=== PATIENT | male | born 1940 | race Caucasian/White ===

== ENCOUNTER 2016-07-04 15:16 | Emergency (ER) | payer OTHER ==
[2016-07-04 17:47] LABS: BASO% 0.2 % (0.0-0.8); EOS# 0.09 X1000 (0.0-0.7); EOS% 1.1 % (0.0-10.0); HEMATOCRIT 43.4 % (42.0-52.0); HEMOGLOBIN 14.7 g/dL (14.0-18.0); IMM GRAN# 0.01 X1000 (0.0-0.04); IMM GRAN% 0.1 % (0.0-0.5); LYMPH# 2.11 X1000 (1.2-3.4); LYMPH% 25.9 % (20.5-51.1); MANUAL DIFF NEEDED? YES; MCHC 33.9 g/dL (33-37); MCV 88.6 FL (81-99); MONO# 1.66 X1000 (0.11-0.59); MONO% 20.4 % (1.7-9.3); MPV 9.8 FL (7.4-10.4); NEUT% 52.3 % (42.2-75.2); PLT 186 X1000 (130-400)
[2016-07-04 18:02] LABS: ALBUMIN 4.6 g/dL (3.5-5.0); CALCIUM 9.4 mg/dL (8.8-10.2); POTASSIUM 3.9 mmol/L (3.5-5.1); TOTAL BILIRUBIN 1.3 mg/dL (0.20-1.00); TOTAL PROTEIN 7.3 g/dL (6.3-8.3)
--- NOTE | 2016-07-04 18:10 | PROVIDER DOCUMENTATION ---
HPI-Abdominal Pain/GI Problem - General Chief Complaint: Diarrhea Stated Complaint: DIARRHEA X 3 DAYS Time Seen by Provider: 07/04/16 18:04 Source: patient Allergies/Adverse Reactions: Patient Allergies Allergy/AdvReac Type Severity Reaction Status Date / Time No Known Allergies Allergy Verified 07/04/16 15:48 Home Medications: Home Medication List Medication Instructions Recorded Confirmed Last Taken Type Amlodipine [Norvasc] 5 mg PO DAILY 09/24/14 09/28/14 09/28/14 04:00 History Exenatide Microspheres [Bydureon 2 mg SQ DIRECTED 09/24/14 09/28/14 09/26/14 History Pen] Glimepiride 2 mg PO DAILY 09/24/14 09/28/14 09/28/14 04:00 History Omeprazole 40 mg PO DAILY 09/24/14 09/28/14 09/28/14 04:00 History Hydrocodone/APAP 10 mg/325 mg 1 each PO Q4H PRN PRN #0 tablet 09/28/14 Unknown Rx [[place]-10] - History of Present Illness-ABD Nature of Presenting Problems: 76 yom c/o intermittent diarrhea for past 3 days, with some mild abd cramping. Pt denies any nausea or vomiting, SOB, Chest pain or any other symptoms at this time. Abdominal Pain Onset Location: reports: RLQ, LLQ Pain Radiation: reports: no radiation Quality of Pain: reports: cramping Severity in ED: denies: mild (Pt denies any pain at this time.), moderate, severe Onset/Duration: reports: 3 days ago Timing: reports: intermittent Activities at Onset: reports: none Exposure to sick contacts?: No Modifying Factors: improves with: nothing Associated Symptoms: reports: diarrhea Review of Systems - Adult - REVIEW OF SYSTEMS - ADULT Constitutional: reports: see HPI. denies: no symptoms reported, chills, fever, fatique, night sweats, weight gain, weight loss, other Eyes: reports: no symptoms reported. denies: see HPI, discharge, dry eyes, decreased vision, blurred vision, double vision, eye pain, redness, other Ears, Nose, Mouth & Throat: reports: no symptoms reported. denies: see HPI, ear discharge, ear pain, hearing loss, tinnitus, epistaxis, sinus problem, nose pain, loose teeth, mouth/dental pain, mouth swelling, hoarseness, throat pain, throat swelling, other Cardiovascular: reports: no symptoms reported. denies: see HPI, chest pain, edema, heart murmur, irregular heart rate, orthopnea, palpitations, poor circulation, PND, syncope, other Respiratory: reports: no symptoms reported. denies: see HPI, chronic cough, cough, dyspnea on exertion, excessive sputum production, hemoptysis, pleurisy, shortness of breath, wheezing, other Gastrointestinal: reports: see HPI, abdominal pain, diarrhea, nausea Genitourinary: reports: no symptoms reported. denies: see HPI, dysuria, discharge, frequency, flank pain, frequent UTI's, hematuria, hesitency, incontinence, urinary retention, urgency, other Musculoskeletal: reports: no symptoms reported. denies: see HPI, bone pain, back pain, frequent leg cramps, joint pain, joint swelling, muscle aches, muscle weakness, neck pain, other Integumentary: reports: no symptoms reported. denies: see HPI, hives, hair loss , itching, mole changes, nail changes, rash, skin sores/ulcer, skin thickening, other Neurological: reports: no symptoms reported. denies: see HPI, ataxia, dizziness /vertigo, headache/migraines, loss of balance, numbness, paresthesia, seizure, slurred speech, syncope, tremors, other Psychiatric: reports: no symptoms reported. denies: see HPI, anxiety, anti- depressant use, alcohol/drug dependence, depression, emotional problems, insomnia, panic attacks, suicidal thoughts, other All Other Systems: Reviewed and Negative Past History - Adult - PAST MEDICAL HISTORY-ADULT Review of Records: reports: Old Records Reviewed, Nursing Assessment Review, Medications Reviewed, Social history reviewed & non-contributory. Physical Exam-General - PHYSICAL EXAM-ADULT Initial Vital Signs Reviewed: Yes - CONSTITUTIONAL General Appearance: appears well, alert, no apparent distress. negative: mild distress, moderate distress, severe distress, cachetic, obese, thin, anxious, lethargic, slow to respond, obtunded, combative, other - EYES Eyes: PERRL/EOMI, pink conjunctivae. negative: fundi clear, no AV nicking, anisocoria, conjuctival exudate, EOM palsy, meningismus, pale conjunctivae, photophobia, sclera injected, scleral icterus, subconjunctival hemorrhage, sunken eyes, other - HEAD, EARS, NOSE, MOUTH & THROAT HENMT: normocephalic/atraumatic, moist mucous membranes, normal ENT inspection, TMs normal, pharynx normal. negative: angioedema, dental decay, hearing deficit , pharyngeal erythema, tonsillar exudate, TM abnormal, TM obscurred by cerumen, frontal tenderness, maxillary tenderness, other - NECK Neck: non-tender, full range of motion, supple, normal inspection. negative: Brudzinski's sign, carotid bruit, C-spine tenderness, limited range of motion, lymphadenopathy, meningismus, trachial deviation, tender lateral, tender midline , thyromegaly, other - RESPIRATORY Respiratory: chest non-tender, lungs clear, normal breath sounds, no pleuratic chest pain, no respiratory distress, no accessory muscle use. negative: respiratory distress, decreased breath sounds, accessory muscle use, crackles, rales, rhonchi, stridor, wheezing, dull on percussion, prolonged expiration, pain on inspiration, plerual rub, retractions, splinting, decreased rate, increased rate, crepitus, other - CARDIOVASCULAR Cardiovascular: normal peripheral pulses, regular rate, rhythm, no edema, no gallop, no JVD, no murmur. negative: JVD, bradycardia, tachycardia, diastolic murmur, systolic murmur, gallop/S3, gallop/S4, extra beats, friction rub, irregularly irregular, PMI displaced laterally, other - CHEST (BREASTS) Chest/Breast: deferred - GASTROINTESTINAL (ABDOMEN) Abdominal Exam: normal bowel sounds, non tender, soft, no organomegaly, no pulsatile mass. negative: abdominal bruit, abnormal bowel sounds, distended, guarding, rigid, rebound, tenderness, hernia, mass, hepatomegaly, spleenomegaly , McBurney's point tenderness, Gonsalves's sign, obturator sign, prominent aortic pulsations, psoas, Rovsing's sign, other - GENITOURINARY Male Genitalia: deferred - LYMPHATIC Lymphatic: no adenopathy. negative: axilla node tender, cervical node tenderness, inguinal node tender, enlargement, striations, streaking, other - MUSCULOSKELETAL Back Exam: normal inspection, no CVA tenderness, no vertebral tenderness. negative: CVA tenderness, decreased range of motion, ecchymosis, kyphosis, lordosis, muscle spasm, scoliosis, swelling, vertebral tenderness, other Extremity: normal range of motion, non-tender, normal gait, normal inspection, no pedal edema, no calf tenderness, normal capillary refill. negative: pelvis stable, abnormal NV exam, calf tenderness, deformity, erythema, inflammation, joint effusion, pulse deficit, pedal edema, slow capillary refill, swelling, tenderness, other - SKIN Integumentary: normal color, normal turgor, warm/dry. negative: abrasion(s), blanching, cyanosis, diaphoresis, decubitus, dependent lividity, ecchymosis, embolic lesions, erythema, signs of IVDA, jaundice, laceration(s), mottled, pallor, petechiae, purpura, rash, swelling, tenderness, warm, zoster-like rash, other - NEUROLOGIC Neurologic: grossly normal - PSYCHIATRIC Psych/Mental Status: oriented x 3 Progress - PLAN OF CARE/RESULTS Progress/Plan/Lab Results: Laboratory Tests 07/04/16 07/04/16 17:30 17:30 WBC 8.15 RBC 4.90 Hgb 14.7 Hct 43.4 MCV 88.6 MCH 30.0 MCHC 33.9 RDW Std Deviation 13.7 Plt Count 186 MPV 9.8 Immature Gran % (Auto) 0.1 Neut % (Auto) 52.3 Lymph % (Auto) 25.9 [place] % (Auto) 20.4 H Eos % (Auto) 1.1 Baso % (Auto) 0.2 Immature Gran # (Auto) 0.01 Neut # (Auto) 4.26 Lymph # (Auto) 2.11 [place] # (Auto) 1.66 H Eos # (Auto) 0.09 Baso # (Auto) 0.02 Segmented Neutrophils 46 Lymphocytes 22 Monocytes 22 H Eosinophils 2 Atypical Lymphocytes 8.0 Sodium 138 Potassium 3.9 Chloride 103 Carbon Dioxide 26 Anion Gap 9 BUN 25 H Creatinine 1.4 H Estimated GFR/1.73 m2 49 BUN/Creatinine Ratio 18 Glucose 89 Calculated Osmolality 280 Calcium 9.4 Total Bilirubin 1.30 H AST 21 ALT 17 Alkaline Phosphatase 90 Total Protein 7.3 Albumin 4.6 Globulin 3.0 Albumin/Globulin Ratio 2.0 Amylase 51 Lipase 33 Orders Category Date Time Status FLAT/UPRIGHT ABD/1 VIEW CHEST [RAD] Stat Exams 07/04/16 16:17 Draft AMYLASE [CHEM] Stat Lab 07/04/16 17:30 Completed CBC WITH DIFF [HEME] Stat Lab 07/04/16 17:30 Completed COMPREHENSIVE METABOLIC PANEL [CHEM] Stat Lab 07/04/16 17:30 Completed LIPASE [CHEM] Stat Lab 07/04/16 17:30 Completed Vital Signs Temp Pulse Resp BP Pulse Ox 07/04/16 18:16 98.7 F 90 18 126/77 98 07/04/16 15:38 97.5 F L 94 H 16 132/66 98 No Known Allergies Allergy (Verified 07/04/16 15:48) Amlodipine [Norvasc] 5 mg PO DAILY 09/24/14 Exenatide Microspheres [Bydureon Pen] 2 mg SQ DIRECTED 09/24/14 Glimepiride 2 mg PO DAILY 09/24/14 Omeprazole 40 mg PO DAILY 09/24/14 Hydrocodone/APAP 10 mg/325 mg [[place]-10] 1 each PO Q4H PRN PRN #0 tablet Laboratory 07/04/16 07/04/16 17:30 17:30 WBC 8.15 RBC 4.90 Hgb 14.7 Hct 43.4 MCV 88.6 MCH 30.0 MCHC 33.9 RDW Std Deviation 13.7 Plt Count 186 MPV 9.8 Immature Gran % (Auto) 0.1 Neut % (Auto) 52.3 Lymph % (Auto) 25.9 [place] % (Auto) 20.4 H Eos % (Auto) 1.1 Baso % (Auto) 0.2 Immature Gran # (Auto) 0.01 Neut # (Auto) 4.26 Lymph # (Auto) 2.11 [place] # (Auto) 1.66 H Eos # (Auto) 0.09 Baso # (Auto) 0.02 Segmented Neutrophils 46 Lymphocytes 22 Monocytes 22 H Eosinophils 2 Atypical Lymphocytes 8.0 Sodium 138 Potassium 3.9 Chloride 103 Carbon Dioxide 26 Anion Gap 9 BUN 25 H Creatinine 1.4 H Estimated GFR/1.73 m2 49 BUN/Creatinine Ratio 18 Glucose 89 Calculated Osmolality 280 Calcium 9.4 Total Bilirubin 1.30 H AST 21 ALT 17 Alkaline Phosphatase 90 Total Protein 7.3 Albumin 4.6 Globulin 3.0 Albumin/Globulin Ratio 2.0 Amylase 51 Lipase 33 - XRAY 1 XRAY Study: Abdomen Impression: Normal (normal per radiologist.) Departure - Departure Time of Disposition Order: 18:08 DIAGNOSIS: Abdominal pain in male Diarrhea Qualifiers: Diarrhea type: unspecified type Qualified Code(s): R19.7 - Diarrhea, unspecified Disposition: HOME 01 Certified Medical Emergency: Emergent Condition: Stable Additional Instructions: Drink plenty of fluids to prevent any dehydration with the diarrhea. Follow up with Primary physician as need or for further evaluation if continues. ED Follow Up Instructions: You have been treated by a care provider in the Emergency Department. These instructions are being provided to you so you can have an understanding of how to care for yourself upon discharge. Upon discharge from the Emergency Department, you are responsible for making arrangements for follow-up care by a physician of your choice. Take all prescribed medications as directed. Return to the Emergency Department immediately for any new or worsening symptoms. You may call the Physician Referral phone number at [phone] to obtain a list of Physicians who are taking new patients. Referrals: Betty Lynne MD [STAFF PHYSICIAN] - None,PCP [Primary Care Provider] - Instructions: Diarrhea, Abdominal Pain, Adult, [id number]
[2016-07-04 18:17] VITALS: BP 126/77
[2016-07-04 18:21] LABS: EOS 2 % (1-10); LYMPHS 22 % (21-51); MONO 22 % (1-9)
--- NOTE | 2016-07-04 18:40 | Diag Imaging Result Document ---
PROCEDURE NAME: FLAT/UPRIGHT ABD/1 VIEW CHEST - 07/04/2016 ONE-VIEW CHEST: FINDINGS: No comparison exam. There is gas visible in a mildly distended small bowel loop at the left mid abdomen. There is no other gaseous small bowel distention identified. There is scattered gas visible in nondistended colon. There are a few air-fluid levels on the upright view. There is no free air identified. There are surgical clips at the right upper quadrant. There are multiple metallic coils at the pelvis. Upright chest shows normal heart size. There is mild tortuosity of the thoracic aorta. There are calcified granulomas and calcified right hilar and subcarinal mediastinal lymph nodes from old granulomatous disease. There is apparent small scar at the lateral right mid chest. The remainder of the lungs appear essentially clear. There is no pleural effusion or pneumothorax identified. IMPRESSION: 1. Nonspecific bowel gas pattern, with a mildly distended small bowel loop visible at the left mid abdomen. The are a few air-fluid levels on the upright view. 2. No evidence of acute cardiopulmonary disease. [facility]
== END 2016-07-04 18:17 | disposition home or self-care (01) ==
LOC: P.ED 15:16
DX: R10.31 Right lower quadrant pain (principal); R10.32 Left lower quadrant pain; R19.7 Diarrhea, unspecified; Z79.899 Other long term (current) drug therapy
CPT/HCPCS: 74022; 80053; 82150; 83690; 85025; 99283